=== PATIENT | female | born 1995 | race Hispanic/Latino ===

== ENCOUNTER 2020-05-11 06:20 | Inpatient (IN) | payer OTHER ==
[~2020-05-11] VITALS: Ht 157.5 cm; Wt 75.8 kg
--- OUTSIDE RECORDS SUMMARY | ~2020-05-11 | XMS | Encounter Summary ---
Demographics + + + | Address | [address] | | | [place] [address] | + + + | Home Phone | | + + + | Preferred Language | Unknown | + + + | Marital Status | Unknown | + + + | Mu-Ism Affiliation | Unknown | + + + | Race | Unknown | + + + | Ethnic Group | Unknown | + + + Author + + + | Author | [facility] | + + + | Organization | [facility] | + + + | Address | Unknown | + + + | Phone | Unavailable | + + + Care Team Providers + +------+ + | Care Radar Engineering Teacher Name | Role | Phone | + +------+ + PCP | Unavailable | + +------+ + Reason for Visit + + + | Reason | Comments | + + + | Urinary tract | | | infection | | + + + Encounter Details +--------+ + + + + | Date | Type | Department | Care Team | Description | +--------+ + + + + | 04/13/ | [facility]phone | [facility] | Yina Benitez, | Urinary tract | | 2020 | | [facility] | [address] | infection | | | | [address] | [facility] | | | | | [address] | [place], [place] | | | | | Ailyn, [address] [place] [address] | [phone] | | | | | [place], [place] | [phone] | | | | | [address] | | | | | | [phone] | | | +--------+ + + + + Social History + +-------+ +--------+------+ | Tobacco Use | Types | Packs/Day | Years | Date | | | | | Used | | + +-------+ +--------+------+ | Never Smoker | | | | | + +-------+ +--------+------+ + + +---------+ + | Alcohol Use | Drinks/Week | oz/Week | Comments | + + +---------+ + | Not Currently | | | | + + +---------+ + + + + | Sex Assigned at | Date Recorded | | | | + + + | Not on file | | + + + + + + + | Job Start Date | Occupation | Industry | + + + + | Not on file | Not on file | Not on file | + + + + + + + + | Travel History | Travel Start | Travel End | + + + + + + | No recent travel history available. | + + documented as of this encounter Plan of Treatment Not on filedocumented as of this encounter Visit Diagnoses Not on filedocumented in this encounter"
--- OUTSIDE RECORDS SUMMARY | ~2020-05-11 | XMS | Clinical Summary ---
Demographics + + + | Address | [address] | | | [place] [address] | + + + | Home Phone | | + + + | Preferred Language | Unknown | + + + | Marital Status | Unknown | + + + | Jewish Affiliation | Unknown | + + + | Race | Unknown | + + + | Ethnic Group | Unknown | + + + Author + + + | Author | [facility] | + + + | Organization | [facility] | + + + | Address | Unknown | + + + | Phone | Unavailable | + + + Care Team Providers + +------+ + | Care Director Of Quality Control Name | Role | Phone | + +------+ + PCP | Unavailable | + +------+ + Source Comments SHANICE is fully live on both EpicCare Ambulatory and EpicCare InPatient[facility] Allergies No Known Allergies Medications + + + +---------+------+------+-------+ | Medication | Sig | Dispensed | Refills | Star | End | Statu | | | | | | t | Date | s | | | | | | Date | | | + + + +---------+------+------+-------+ | | Take 2 tablets by | 28 | 0 | 07/0 | 07/0 | Expir | | trimethoprim-sulfame | mouth two times | tablet | | 2/20 | / | ed | | thoxazole 160-800 mg | daily for 7 days. | | | 20 | 20 | | | oral | Indications: UTI | | | | | | | tabletIndications: | | | | | | | | urinary tract | | | | | | | | infection | | | | | | | + + + +---------+------+------+-------+ Active Problems + + + | Problem | Noted Date | + + + | Encounter for supervision of normal in third trimester | 04/09/2020 | + + + + + | Overview: - FoB:- Dating Criteria: [ ] - [ ] Labs: | | Rh [ ], Ab [ ], Rubella [ ], GC/CT/HIV/HepBSAg/RPR [ ] - [ ] | | HgbA1C: - [ ] Pap: - [x] CBC: Hgb [9.5 ] , Plt [222 ] 03/09 - [ ] | | Urine Cx (12-16wks): - [x] 2hr gtt at 24-28wks: 101 | | (normal/passed)- [ ] Flu Shot (Jun-Sep):- [ ] Tdap (27-36wks):- [ | | ] Genetic Screening (SS#1:11-14wks, SS#2: 15-20wks):- [ ] | | Ultrasounds:- [ ] GBS at 35wks:- [ ] sex:- [ ] MOD: | | Expected vaginal- [ ] ToD: - [ ] :- [ ] MOC: | |- [ ] Flu Shot (Jun-Sep): | |- [ ] Tdap (27-36wks): | |- [ ] Genetic Screening (SS#1:11-14wks, SS#2: 15-20wks): | |- [ ] Ultrasounds: | |- [ ] GBS at 35wks: | |- [ ] sex: | |- [ ] MOD: Expected vaginal | |- [ ] ToD: | |- [ ] : | |- [ ] MOC: | + + + + + + | | Estimated Date of Delivery | Comments | + + + + | Yes | 05/18/2020 | Based on last | | | | menstrual period of | | | | 08/12/2019 | + + + + Encounters +--------+ + + + + | Date | Type | Specialty | Care Team | Description | +--------+ + + + + | 04/13/ | Telephone | Obstetrics & | Yina Benitez, | Urinary tract | | 2019 | | Gynecology | MD | infection | +--------+ + + + + | 04/09/ | Hospital | | Yina Benitez, | | | 2019 | Encounter | | MD | | +--------+ + + + + from Last 3 Months Social History + +-------+ +--------+------+ | Tobacco [...] + + +---------+ + + + + + | | Estimated Date of Delivery | Comments | + + + + | Yes | 05/18/2020 | Based on last | | | | menstrual period of | | | | 08/12/2019 | + + + + + + + | Sex Assigned [...] recent travel history available. | + + Last Filed Vital Signs + + + + + | Vital Sign | Reading | Time Taken | Comments | + + + + + | Blood Pressure | 109/62 | 04/09/2020 3:30 PM | | | | | PDT | | + + + + + | Pulse | 96 | 04/09/2020 3:30 PM | | | | | PDT | | + + + + + | Temperature | 36.7 C (98.1 F) | 04/09/2020 3:30 PM | | | | | PDT | | + + + + + | Respiratory Rate | 18 | 04/09/2020 3:30 PM | | | | | PDT | | + + + + + | Oxygen Saturation | - | - | | + + + + + | Inhaled Oxygen | - | - | | | Concentration | | | | + + + + + | Weight | 71.7 kg (158 lb) | 04/09/2020 3:26 PM | | | | | PDT | | + + + + + | Height | 154.9 cm (5' 1") | 04/09/2020 3:26 PM | | | | | PDT | | + + + + + | Body Mass Index | 29.85 | 04/09/2020 3:26 PM | | | | | PDT | | + + + + + Plan of Treatment + + + + + | Health Maintenance | Due Date | Last Done | Comments | + + + + + | Influenza (Flu) | | | | | vaccination (#1) | 0 | | | + + + + + | Pneumococcal | Aged Out | | No longer eligible | | vaccination | | | based on patient's | | | | | age to complete this | | | | | topic | + + + + + Procedures + +--------+ + + + | Procedure Name | Priori | Date/Time | Associated Diagnosis | Comments | | | ty | | | | + +--------+ + + + | STREP B OB DNA PCR | Urgent | 04/09/2020 | | Results for this | | W/RFLX IF IND, SWAB | | 4:59 PM | | procedure are in the | | | | PDT | | results section. | + +--------+ + + + | VAG PATHOGENS/DNA | Urgent | 04/09/2020 | | Results for this | | PROBE (TRICH, G. | | 4:57 PM | | procedure are in the | | VAG, JIGNESH) | | PDT | | results section. | + +--------+ + + + | CBC (HEMOGRAM) ONLY | Urgent | 04/09/2020 | | Results for this | | | | 4:55 PM | | procedure are in the | | | | PDT | | results section. | + +--------+ + + + | CONFIRMATORY ABO/RH | Routin | 04/09/2020 | | Results for this | | | e | 4:55 PM | | procedure are in the | | | | PDT | | results section. | + +--------+ + + + | ANTIBODY SCREEN | Routin | 04/09/2020 | | Results for this | | | e | 4:55 PM | | procedure are in the | | | | PDT | | results section. | + +--------+ + + + | ABO & RH TYPE | Routin | 04/09/2020 | | Results for this | | | e | 4:55 PM | | procedure are in the | | | | PDT | | results section. | + +--------+ + + + | TYPE AND SCREEN | Routin | 04/09/2020 | | Results for this | | | e | 4:55 PM | | procedure are in the | | | | PDT | | results section. | + +--------+ + + + | CBC ONLY | Urgent | 04/09/2020 | | Results for this | | | | 4:55 PM | | procedure are in the | | | | PDT | | results section. | + +--------+ + + + | URINE CULTURE WORKUP | Routin | 04/09/2020 | | Results for this | | | e | 4:45 PM | | procedure are in the | | | | PDT | | results section. | + +--------+ + + + | CULTURE, URINE [facility] | Routin | 04/09/2020 | | Results for this | | | e | 4:45 PM | | procedure are in the | | | | PDT | | results section. | + +--------+ + + + | URINE SCREEN FOR | Urgent | 04/09/2020 | | Results for this | | CULTURE | | 4:45 PM | | procedure are in the | | | | PDT | | results section. | + +--------+ + + + | UA DIPSTICK 8 DIP | Routin | 04/09/2020 | | Results for this | | W/O MICRO | e | 3:48 PM | | procedure are in the | | (AUTOMATED) POC | | PDT | | results section. | + +--------+ + + + from Last 3 Months Results STREP B OB DNA PCR W/RFLX IF IND, SWAB (04/09/2020 4:59 PM PDT) + + + + + + | Component | Value | Ref Range | Performed | Pathologist | | | | | At | Signature | + + + + + + | GROUP B DNA | Negative | Negative | [facility] | | | , PCR | | | LABORATORY | | | | | | SERVICES, | | | | | | CORE | | + + + + + + | PEN/CEPH | No | | [facility] | | | ALLERGY | | | LABORATORY | | | | | | SERVICES, | | | | | | CORE | | + + + + + + + + | Specimen | + + | Swab - Pooled | | specimen from | | vaginal introitus | | and rectal swab | | (specimen) | + + + + + + + | Performing | Address | City/State/Zipcode | Phone Number | | Organization | | | | + + + + + | [facility] | [address] | [place] [address] | | | SERVICES, RED | [address] | | | + + + + + VAG PATHOGENS/DNA PROBE (TRICH, G. VAG, JIGNESH) (04/09/2020 4:57 PM PDT) + + + + + + | Component | Value | Ref Range | Performed | Pathologist | | | | | At | Signature | + + + + + + | TRICHOMONAS | Negative | Negative | [facility] | | | DNA PROBE | | | LABORATORY | | | | | | SERVICES, | | | | | | CORE | | + + + + + + | G. | Positive (A) | Negative | [facility] | | | VAGINALIS | | | LABORATORY | | | DNA PROBE | | | SERVICES, | | | | | | CORE | | + + + + + + | JIGNESH SP. | Negative | Negative | [facility] | | | DNA PROBE | | | LABORATORY | | | | | | SERVICES, | | | | | | CORE | | + + + + + + + + | Specimen | + + | Swab - Vagina | + + + + + + + | Performing | Address | City/State/Zipcode | Phone Number | | Organization | | | | + + + + + | [facility] | [address] | [place] [address] | | | SERVICES, CORE | [address] | | | + + + + + CBC (HEMOGRAM) ONLY (04/09/2020 4:55 PM PDT) + + + + + + | Component | Value | Ref Range | Performed | Pathologist | | | | | At | Signature | + + + + + + | WHITE CELL | 7.73 | 3.50 - 10.80 | [facility] | | | COUNT | | K/cu mm | LABORATORY | | | | | | SERVICES, | | | | | | CORE | | + + + + + + | RED CELL | 3.75 (L) | 4.00 - 5.20 | [facility] | | | COUNT | | M/cu mm | LABORATORY | | | | | | SERVICES, | | | | | | CORE | | + + + + + + | HEMOGLOBIN | 9.3 (L) | 12.0 - 16.0 | [facility] | | | | | g/dL | LABORATORY | | | | | | SERVICES, | | | | | | CORE | | + + + + + + | HEMATOCRIT | 30.5 (L) | 36.0 - 46.0 % | [facility] | | | | | | LABORATORY | | | | | | SERVICES, | | | | | | CORE | | + + + + + + | MCV | 81.3 | 80.0 - 100.0 fL | [facility] | | | | | | LABORATORY | | | | | | SERVICES, | | | | | | CORE | | + + + + + + | MCHC | 30.5 (L) | 32.0 - 36.0 | [facility] | | | | | g/dL | LABORATORY | | | | | | SERVICES, | | | | | | CORE | | + + + + + + | RDW SD | 47.5 (H) | 35.1 - 46.3 fL | [facility] | | | | | | LABORATORY | | | | | | SERVICES, | | | | | | CORE | | + + + + + + | PLATELET | 208 | 150 - 400 K/cu | [facility] | | | COUNT | | mm | LABORATORY | | | | | | SERVICES, | | | | | | CORE | | + + + + + + | MPV | 10.8 | 9.7 - 12.3 fL | [facility] | | | | | | LABORATORY | | | | | | SERVICES, | | | | | | CORE | | + + + + + + | NRBC% | 0.0 | 0.0 - 0.3 % | [facility] | | | | | | LABORATORY | | | | | | SERVICES, | | | | | | CORE | | + + + + + + | NRBC# | 0.00 | 0.00 - 0.02 | [facility] | | | | | K/cu mm | LABORATORY | | | | | | SERVICES, | | | | | | CORE | | + + + + + + + + | Specimen | + + | Blood - Blood | | (substance) | + + + + + + + | Performing | Address | City/State/Zipcode | Phone Number | | Organization | | | | + + + + + | [facility] | [address] | [place] [address] | | | SERVICES, CORE | [address] | | | + + + + + CONFIRMATORY ABO/RH (04/09/2020 4:55 PM PDT) + + + + + + | Component | Value | Ref Range | Performed | Pathologist | | | | | At | Signature | + + + + + + | ABO Group | O | | [facility] | | | | | | LABORATORY | | | | | | SERVICES, | | | | | | TRANSFUSION | | | | | | MEDICINE | | + + + + + + | Rh Type | Positive | | [facility] | | | | | | LABORATORY | | | | | | SERVICES, | | | | | | TRANSFUSION | | | | | | MEDICINE | | + + + + + + + + | Specimen | + + | Blood - Blood | | (substance) | + + + + + + + | Performing | Address | City/State/Zipcode | Phone Number | | Organization | | | | + + + + + | [facility] | [address] | [place] [address] | | | SERVICES, | [address] | | | | TRANSFUSION MEDICINE | | | | + + + + + ANTIBODY SCREEN (04/09/2020 4:55 PM PDT) + + + + + + | Component | Value | Ref Range | Performed | Pathologist | | | | | At | Signature | + + + + + + | Antibody | Negative | | [facility] | | | Screen | | | LABORATORY | | | | | | SERVICES, | | | | | | TRANSFUSION | | | | | | MEDICINE | | + + + + + + + + | Specimen | + + | Blood - Blood | | (substance) | + + + + + + + | Performing | Address | City/State/Zipcode | Phone Number | | Organization | | | | + + + + + | [facility] | [address] | [place] [address] | | | SERVICES, | [address] | | | | TRANSFUSION MEDICINE | | | | + + + + + ABO & RH TYPE (04/09/2020 4:55 PM PDT) + + + + + + | Component | Value | Ref Range | Performed | Pathologist | | | | | At | Signature | + + + + + + | ABO Group | O | | [facility] | | | | | | LABORATORY | | | | | | SERVICES, | | | | | | TRANSFUSION | | | | | | MEDICINE | | + + + + + + | Rh Type | Positive | | [facility] | | | | | | LABORATORY | | | | | | SERVICES, | | | | | | TRANSFUSION | | | | | | MEDICINE | | + + + + + + + + | Specimen | + + | Blood - Blood | | (substance) | + + + + + + + | Performing | Address | City/State/Zipcode | Phone Number | | Organization | | | | + + + + + | [facility] | [address] | [place] [address] | | | SERVICES, | [address] | | | | TRANSFUSION MEDICINE | | | | + + + + + URINE CULTURE WORKUP (04/09/2020 4:45 PM PDT) + + + + + + | Component | Value | Ref Range | Performed | Pathologist | | | | | At | Signature | + + + + + + | CULTURE | Coagulase negative | | [facility] - | | | RESULT | staphylococcus species | | [facility] - | | | | (A) | | [place] | | + + + + + + + + | Specimen | + + | Urine - Urine | | (substance) | + + + + + | Narrative | Performed At | + + + | Culture Report: 30,000 cfu/ml Coagulase negative Staphylococcus | [facility] - | | species 50,000 cfu/ml Genital dipti | [facility] - | | | [place] | + + + + + + + + | Performing | Address | City/State/Zipcode | Phone Number | | Organization | | | | + + + + + | [facility] | [address] | [place] [address] | | | [place] | | | | + + + + + CULTURE, URINE [facility] (04/09/2020 4:45 PM PDT) + + + + + + | Component | Value | Ref Range | Performed | Pathologist | | | | | At | Signature | + + + + + + | URINE | See Cx Results (A) | | [facility] | | | CULTURE | | | LABORATORY | | | [facility] | | | SERVICES, | | | | | | CORE | | + + + + + + + + | Specimen | + + | Urine - Urine | | (substance) | + + + + + + + | Performing | Address | City/State/Zipcode | Phone Number | | Organization | | | | + + + + + | [facility] | [address] | [place] [address] | | | SERVICES, CORE | [address] | | | + + + + + URINE SCREEN FOR CULTURE (04/09/2020 4:45 PM PDT) + + + + + + | Component | Value | Ref Range | Performed | Pathologist | | | | | At | Signature | + + + + + + | URINE | Sent for Culture (A) | Negative | [facility] | | | SCREEN FOR | | | LABORATORY | | | CULTURE | | | SERVICES, | | | | | | CORE | | + + + + + + + + | Specimen | + + | Urine - Urine | | (substance) | + + + + + | Narrative | Performed At | + + + | Culture Screen Positive, specimen sent for culture. | [facility] | | | LABORATORY | | | [facility] | + + + + + + + + | Performing | Address | City/State/Zipcode | Phone Number | | Organization | | | | + + + + + | [facility] | [address] | [place] [address] | | | [place] | [address] | | | + + + + + UA 8 ELMA ADKINS (04/09/2020 3:48 PM PDT) + + + + + + | Component | Value | Ref Range | Performed | Pathologist | | | | | At | Signature | + + + + + + | GLUCOSE (UA | Negative | Negative - | [facility] - | | | DIP), POC | | Trace mg/dL | [facility] | | | | | | [facility] | | | | | | OF CARE | | | | | | TESTS | | + + + + + + | KETONES (UA | Negative | Negative mg/dL | [facility] - | | | DIP), POC | | | [facility] | | | | | | [facility] | | | | | | OF CARE | | | | | | TESTS | | + + + + + + | PROTEIN (UA | Negative | Neg - Trace | [facility] - | | | DIP), POC | | mg/dL | [facility] | | | | | | [facility] | | | | | | OF CARE | | | | | | TESTS | | + + + + + + | BLOOD (UA | Negative | Negative | [facility] - | | | DIP), POC | | | [facility] | | | | | | [facility] | | | | | | OF CARE | | | | | | TESTS | | + + + + + + | PH (UA | 7.0 | 5.0 - 8.0 | [facility] - | | | DIP), POC | | | [facility] | | | | | | [facility] | | | | | | OF CARE | | | | | | TESTS | | + + + + + + | NITRITES | Negative | Negative | [facility] - | | | (UA DIP), | | | [facility] | | | POC | | | [facility] | | | | | | OF CARE | | | | | | TESTS | | + + + + + + | LEUKOCYTES | Trace (A) | Negative | [facility] - | | | (UA DIP), | | | [facility] | | | POC | | | [facility] | | | | | | OF CARE | | | | | | TESTS | | + + + + + + | SPECIFIC | 1.015 | 1.005 - 1.030 | [facility] - | | | GRAVITY (UA | | | [facility] | | | DIP), POC | | | [facility] | | | | | | OF CARE | | | | | | TESTS | | + + + + + + | APPEARANCE | Clear | | [facility] - | | | (UA DIP), | | | [facility] | | | POC | | | [facility] | | | | | | OF CARE | | | | | | TESTS | | + + + + + + | COLOR (UA | Yellow | | [facility] - | | | DIP), POC | | | [facility] | | | | | | [facility] | | | | | | OF CARE | | | | | | TESTS | | + + + + + + + + | Specimen | + + | Urine | + + + + + + + | Performing | Address | City/State/Zipcode | Phone Number | | Organization | | | | + + + + + | [facility] | [address] | [place], [place] | | | [facility] | [address] | [address] | | | TESTS | | | | + + + + + from Last 3 Months Insurance + +--------+ +--------+-------+---------+--------+ | Payer | Benefi | Subscriber | Effect | Phone | Address | Type | | | t Plan | ID | gary | | | | | | / | | Dates | | | | | | Group | | | | | | + +--------+ +--------+-------+---------+--------+ | [employer]CIAL [employer] | COMMER | xxxxxxxxxxx | 10/13/19 | | | Indemn | | | CIAL | | 20-Pre | | | ity | | | GROUP | | sent | | | | + +--------+ +--------+-------+---------+--------+ + +--------+ +--------+ + + | Guarantor Name | Accoun | Relation to | Date | Phone | Billing Address | | | t Type | Patient | of | | | | | | | | | | + +--------+ +--------+ + + | Catarina Key | Person | Self [birth year] [address] | | | al/Fam | | 1995 | [phone] | [address] [facility], | | | [place] | | | [address] (Home) | [place] [address] | + +--------+ +--------+ + +
--- OUTSIDE RECORDS SUMMARY | ~2020-05-11 | XMS | Encounter Summary ---
Demographics + + + | Address | [address] | | | [place] [address] | + + + | Home Phone | | + + + | Preferred Language | Unknown | + + + | Marital Status | Unknown | + + + | Episcopalian Affiliation | Unknown | + + + | Race | Unknown | + + + | Ethnic Group | Unknown | + + + Author + + + | Author | [facility] | + + + | Organization | [facility] | + + + | Address | Unknown | + + + | Phone | Unavailable | + + + Care Team Providers + +------+ + | Care Banking And Finance Instructor Name | Role | Phone | + +------+ + PCP | Unavailable | + +------+ + Reason for Visit + + + | Reason | Comments | + + + | SROM - Spontaneous | | | rupture of membranes | | + + + | Labor Pain | | + + + AUTH/CERT +--------+--------+ + + + + | Status | Reason | Specialty | Diagnoses / | Referred By | Referred To | | | | | Procedures | Contact | Contact | +--------+--------+ + + + + | | | | | | | +--------+--------+ + + + + Encounter Details +--------+ + + + + | Date | Type | Department | Care Team | Description | +--------+ + + + + | 04/09/ | Hospital | [facility] [address] | Yina Benitez, | | | 2020 | Encounter | [address] | MD [address] | | | | | [place], [place] | [facility] | | | | | [address] | [place], [place] | | | | | [phone] | [address] | | | | | | [phone] | | | | | | | | +--------+ + + + [...] + + documented as of this encounter Last Filed Vital Signs + + + [...] | | + + + + + documented in this encounter Discharge Instructions Instructions Rukhsana Lord MD - 04/09/2020General & Labor Information- Oral Intake: Eat small frequent meals. Drink enough fluid to keep your urine light yellow. If you are concerned that your baby isn t moving enough: After a meal, lie down on your side (either side is fine). Record baby movements, baby should move 10 times in 2 hours. If baby does not move 10 times in 2 hours, call Labor and Delivery immediately. Bag of water: A gush or trickle of fluid from your vagina may mean your bag of water has broken. Put on a sanitary pad and call Labor and Delivery. Note the time and color of the fluid. You may take a shower No tub bath or sex. Bleeding: A small amount of bleeding or spotting with a mucous discharge after a pelvic exam or se x may be normal, bleeding like a period or more is not. If you are having any concerns about bleeding, call Labor and Delivery. Chills and fever If you are having chills and/or a fever greater than 100.4o F, call Labor and Delivery. Headache, visual changes, abdominal pain or vomiting, or any of the following: Headaches that are not relieved with rest, hydration, and Tylenol. Visual changes such as blurring or difficulty seeing. Heartburn not relieved by an antacid (Maalox, Tums, Mylanta, etc) Constant abdominal pain or vomiting. Call Labor and Delivery immediately. Contractions (labor pains): Contractions will become longer and stronger and remain long and strong in any position, i.e. walking, resting on your side, sitting or standing. Don t forget to drink water or fluids every couple of hours and eat small frequent brenda ls, i.e. soup, crackers, toast and fruit. Contractions will become difficult to walk and talk through this is when you start t o time the contractions. Time contractions from the start of one contraction to the start of the next. If you are in constant, severe pain with no relief between contractions, call Labor and Delivery. When to call Labor and Delivery for Women greater than 37 weeks: When contractions are 5-7 minutes apart lasting 40-60 seconds consistently for 1 hour 2nd + baby. Please call Labor and Delivery if you are less than 37 weeks and experiencing the following symptoms: Uterine contractions four or more per hour. It may feel like the abdomen is tight and ma y be painless or uncomfortable. Menstrual-like cramps felt low in the abdomen. These may be constant or come and go. Lower, dull backache or lower back pain that may radiate to the sides or to the front. Pelvic pressure or heaviness in the lower abdomen, back or thighs. It may feel as though the baby is pushing down. Intestinal cramps or a feeling of gas pains, with or without diarrhea. Increase or change in vaginal discharge which may become pink, brown-tinged, mucousy, or watery. A general feeling that something is "not right" or just not feeling well. [facility] Labor and Delivery [phone] To contact your provider, please call the [facility] clinic at [phone] during daytime hours. documented in this encounter Plan of Treatment Not on filedocumented as of this encounter Procedures + +--------+ + + + | [...] section. | + +--------+ + + + documented in this encounter Results STREP B OB DNA PCR W/RFLX [...] [facility] | [address] | [place] [address] | | | SERVICES, CORE | [address] [...] | + + + + + | [facility] | [address] | [place] [address] | | | SERVICES, CORE | [address] | | | + [...] [facility] | [address] | [place] [address] | | | SERVICES, | [address] [...] | + + + + + | [employer] [facility] | [address] | [place] [address] | | | SERVICES, | [address] [...] [facility] | [address] | [place] [address] | | | SERVICES, | [address] [...] + + + + + | [facility] | [address] | [place] [address] | | | SERVICES, CORE | [address] [...] dipti | AIRPORT - | | | [facility] | + + + + + + + + | Performing | Address | City/State/Zipcode | Phone Number | | Organization | | | | + + + + + | [facility] | [address] | [place] [address] | | | [place] | | | | + + + + + CULTURE, URINE SHANICE (04/09/2020 4:45 PM PDT) + + + [...] [facility] | [address] | [place] [address] | | | SERVICES, CORE | [address] [...] Screen Positive, specimen sent for culture. | [facility] | | | LABORATORY | | | [place] | + + + + + + + + | Performing | Address | City/State/Zipcode | Phone Number | | Organization | | | | + + + + + | [facility] | [address] | [place] [address] | | | [place] | [address] | | | + + + + + UA 8 DIP, POC (04/09/2020 3:48 PM PDT) + + + + + + | Component | Value | Ref Range | Performed | Pathologist | | | | | At | Signature | + + + + + + | GLUCOSE (UA | Negative | Negative - | [facility] - | | | DIP), POC | | Trace mg/dL | [facility] | | | | | | [facility] | | | | | | OF CARE | | | | | | TESTS | | + + + + + + | KETONES (UA | Negative | Negative mg/dL | [facility] - | | | DIP), POC | | | [facility] | | | | | | [facility] [...] | | DIP), POC | | | [facility] | | | | | | [facility] | | | | | | OF CARE | | | | | | TESTS | | + + + + + + | PH (UA | 7.0 | 5.0 - 8.0 | [facility] - | | | DIP), POC | | | [facility] | | | | | | [place] [facility] | | [...] | | | POC | | | [place] [place] | | | | | | OF CARE | | | | | | TESTS | | + + + + + + | SPECIFIC | 1.015 | 1.005 - 1.030 | [facility] - | | | GRAVITY (UA | | | [facility] | | | DIP), POC | | | [place] [place] | | | | | | OF CARE | | | | | | TESTS | | + + + + + + | APPEARANCE | Clear | | [facility] - | | | (UA DIP), | | | [facility] | | | POC | | | [place] [place] | | | | | | OF CARE | | | | | | TESTS | | + + + + + + | COLOR (UA | Yellow | | [facility] - | | | DIP), POC | | | [facility] | | | | | | [place] | | | | | | [...] [facility] | [address] | [place], [place] | | | [facility] | [address] | [address] | | | TESTS | | | | + + + + + documented in this encounter Visit Diagnoses + + | Diagnosis | + + | Encounter for supervision of normal in third trimester Supervision of other | | normal | + + documented in this encounter Administered Medications + +--------+---------+------+------+------+ | Medication Order | MAR | Action | Dose | Rate | Site | | | Action | Date | | | | + +--------+---------+------+------+------+ + +---+ | acetaminophen (TYLENOL) tablet | | | 1,000 mg 1,000 mg, oral, EVERY 6 | | | HOURS NEEDED, Starting Sun | | | 04/09/20 at 1546, Until Mon | | | 04/10/20 at 0055, fever, mild pain | | | and/or fever greater than 38C | | + +---+ | | | + +---+ | | | | fqphrxfmyn-[id number]-wcptvghk | | | (FIORICET) 50-325-40 mg 1 tablet | | | 1 tablet, oral, EVERY 6 HOURS | | | NEEDED, Starting 04/09/20 | | | at 1701, Until 04/10/20 at | | | 0055, headache | | + +---+ | | | + +---+ + +-------+ +--------+---+---+ | hydrOXYzine pamoate (VISTARIL) | Given | 04/09/20 | 100 mg | | | | capsule 100 mg 100 mg, oral, | | 20 6:21 | | | | | ONCE, 1 dose, 04/09/20 at 1815 | | PM PDT | | | | + +-------+ +--------+---+---+ +---+---+ | | | +---+---+ + +---------+ +--------+---+---+ | lactated ringers (LR) bolus 500 | New Bag | 04/09/20 | 500 mL | | | | mL 500 mL, intravenous, ONCE, 1 | | 20 4:46 | | | | | dose, 04/09/20 at 1645 | | PM PDT | | | | + +---------+ +--------+---+---+ +---+---+ | | | +---+---+ + +-------+ +-------+---+---+ | prochlorperazine (COMPAZINE) | Given | 04/09/20 | 10 mg | | | | tablet 10 mg 10 mg, oral, EVERY | | 20 5:25 | | | | | 6 HOURS NEEDED, Starting Sun | | PM PDT | | | | | 04/09/20 at 1708, Until Mon | | | | | | | 04/10/20 at 0055, nausea/vomiting, | | | | | | | first line | | | | | | + +-------+ +-------+---+---+ +---+---+ | | | +---+---+ documented in this encounter
--- NOTE | 2020-05-11 14:36 | PR ---
[facility] [address] [facility] [place], [place] [address] Signed Progress Notes IP Datetime Report Generated by CPN: 05/11/2020 14:36 PROGRESS NOTES: [id number] Impression: Normal Progression of Labor; Reassuring Heart Rate Procedures: Sterile Vag Exam Plan: Continue Present Management; Anticipate Vaginal Delivery VITAL SIGNS: [id number] Vital Signs: Reviewed EXAM: [id number] Dilatation: 6.0 Effacement: 75 Station: -1 Contractions: q 1-3 min MEMBRANES: [id number] Comments: Pt seen and examined. Doing well. Comfortable w/ contractions. Doing well on low dose pitocin and now has a regular contraction pattern. If unchanged at next exam would consider IUPC. Anticipate . All questions answered FETUS A: [id number] FHR Baseline: 145 Variability: Moderate 6-25bpm Accelerations: 15X15 Decelerations: None FHR Category: Category I Presentation: Vertex Comments on Fetus A: No evidence of metabolic acidosis FETUS B: [id number] Signing Physician: Lit Machado DO Copies: ~ *Electronically Signed* 05/11/20 1436 LIT MACHADO DO PATIENT NAME: SHARRI FELIX PROGRESS NOTE DATE OF : 97 PHYSICIAN: LIT MACHADO DO RPT #: [id number] REPORT IS CONFIDENTIAL AND NOT TO BE RELEASED WITHOUT AUTHORIZATION
--- NOTE | 2020-05-12 11:16 | PR ---
[facility] [address] [place], [place] [address] Signed PP Progress Notes Datetime Report Generated by CPTrav: 05/12/2020 11:16 SUBJECTIVE: [id number] Pain: Within Normal Limits Nausea/Vomiting: Denies Flatus: Yes Bowel Movement: No Vital Signs: [id number] Vital Signs: Reviewed; Within Normal Limits Cardiovascular: Normal Respiratory: Normal Abdomen/Uterus: Normal Lochia: Normal Vulva/Perineum: Not Done Breasts: Not Done CVA Tenderness: Normal Extremities: Normal Incision: Not Applicable Progress: Normal Exam Comments: Fundus firm U-2 nontender IMPRESSION/PLAN/PROCEDURES: [id number] Impression: Normal Progression Plan: Continue Present Management Progress Notes: Pt seen and examined. Doing well. Ambulating, voiding, and tolerating full diet. Pain and lochia moderate. well. Anticipate d/c home tomorrow Signing Physician: Lit Machado DO Copies: ~ *Electronically Signed* 05/12/20 1116 LIT MACHADO DO PATIENT NAME: SHARRI FELIX PROGRESS NOTE DATE OF : [birth year] PHYSICIAN: LIT MACHADO DO [facility] #: [id number] REPORT IS CONFIDENTIAL AND NOT TO BE RELEASED WITHOUT AUTHORIZATION
--- NOTE | 2020-05-13 09:14 | PR ---
[facility] [address] [place], [place] [address] Signed PP Progress Notes Datetime Report Generated by CPN: 05/13/2020 09:13 SUBJECTIVE: [id number] Pain: Within Normal Limits Nausea/Vomiting: Denies Flatus: Yes Bowel Movement: Yes Vital Signs: [id number] Vital Signs: Reviewed; Within Normal Limits Cardiovascular: Normal Respiratory: Normal Abdomen/Uterus: Normal Lochia: Normal Vulva/Perineum: Not Done Breasts: Not Done CVA Tenderness: Normal Extremities: Normal Incision: Not Applicable Progress: Normal Exam Comments: fundus firm U-2 nontender IMPRESSION/PLAN/PROCEDURES: [id number] Impression: Normal Progression Plan: Discharge Progress Notes: Pt seen and examined. Doing well. Ambulating, voiding, and tolerating full diet. Pain and lochia minimal. well. No fevers/chills/discharge. No lightheadedness/dizziness. Desires d/c home. Unsure of contraceptive plans, but possibly depoprovera or nuvaring. All quesitons answered. Signing Physician: Lit Machado DO Copies: ~ *Electronically Signed* 05/13/20912 LIT MACHADO DO PATIENT NAME: SHARRI FELIX PROGRESS NOTE DATE OF : [birth year] PHYSICIAN: LIT MACHADO DO RPT #: [id number] REPORT IS CONFIDENTIAL AND NOT TO BE RELEASED WITHOUT AUTHORIZATION
== END 2020-05-13 11:01 | disposition home or self-care (01) | DRG 807 ==
LOC: FBCO 06:20 → FBC 09:05
PROVIDERS: ADMIT Obstetrics & Gynecology
PROC: 10E0XZZ Delivery of Products of Conception, External Approach (ICD-10-PCS; principal; 2020-05-11)
PROC: 3E0S3BZ Introduction of Anesthetic Agent into Epidural Space, Percutaneous Approach (ICD-10-PCS; 2020-05-11)
PROC: 00HU33Z Insertion of Infusion Device into Spinal Canal, Percutaneous Approach (ICD-10-PCS; 2020-05-11)
DX: O69.81X0 Labor and delivery complicated by cord around neck, without compression, not applicable or unspecified (principal); O70.0 First degree perineal laceration during delivery; Z37.0 Single live birth; Z3A.39 39 weeks gestation of pregnancy
CPT/HCPCS: 01960; 36415; 82728; 82803; 85027; A9270; J2590; J2795; J7121